=== PATIENT | male | born 1985 | race Caucasian/White ===

== ENCOUNTER 2025-06-21 12:26 | Emergency (ER) | payer BC, SELFPAY ==
--- NOTE | 2025-06-21 12:31 | EKG_ITS ---
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
[2025-06-21 12:45] VITALS: BP 157/109; PULSE 59; RESP 24; TEMP 36.9; O2SAT 100; BMI 30.4
[2025-06-21 13:36] LABS: Lactate (Lactic Acid) 1.9 mMol/L (0.4-2.0)
[2025-06-21 13:38] LABS: Basophils # (Auto) 0.1 Thou/mm3 (0.0-0.2); Basophils % (Auto) 1 % (0-2.5); Eosinophils # (Auto) 0.5 Thou/mm3 (0.0-0.5); Eosinophils % (Auto) 4 % (0-10); Hematocrit 45.4 % (41.0-53.0); Hemoglobin 16.0 g/dL (13.5-16.0); Immature Granulocytes Auto 0.09 Thou/mm3 (0.00-0.00); Lymphocytes # (Auto) 3.9 Thou/mm3 (1.0-4.8); Lymphocytes % (Auto) 30 % (10-50); Mean Corpuscular HGB Conc 35.2 g/dl (31.0-37.0); Mean Corpuscular Hemoglobin 31.1 pg (25.0-35.0); Mean Corpuscular Volume 88 fL (80-100); Monocytes # (Auto) 1.4 Thou/mm3 (0.0-0.8); Monocytes % (Auto) 10 % (0-12); Neutrophils # (Auto) 7.2 Thou/mm3 (1.8-7.7); Neutrophils % (Auto) 55 % (37-80); Nucleated Red Blood Cell # 0.00 Thou/mm3 (0.00-0.00); Nucleated Red Blood Cell % 0 /100 WBC (0); Platelet Count 293 Thou/mm3 (140-440); RDW Standard Deviation 42.1 fL (35.1-43.9); Red Blood Count 5.15 Miln/mm3 (4.50-5.90); White Blood Count 13.2 Thou/mm3 (3.8-10.6)
[2025-06-21 13:52] VITALS: BP 142/107; PULSE 78; RESP 18; TEMP 36.9; O2SAT 98
[2025-06-21 13:58] LABS: Alanine Aminotransferase 34 U/L (10-49); Albumin, Serum 5.2 gm/dL (3.5-5.0); Albumin/Globulin Ratio 2.3 (1.2-2.2); Alkaline Phosphatase 88 U/L (46-116); Anion Gap 10 (7-16); Aspartate Amino Transferase 25 U/L (0-34); BUN/Creatinine Ratio 8 Ratio (12-20); Bilirubin,Total 0.8 mg/dL (0.3-1.2); Blood Urea Nitrogen 9 mg/dL (9-23); Calcium 10.0 mg/dL (8.3-10.6); Calcium (Corrected) 10.0 mg/dL (8.5-10.1); Carbon Dioxide 24.5 mMol/L (20.0-31.0); Chloride 106 mMol/L (98-107); Creatinine (Component) 1.1 mg/dL (0.6-1.3); Estimated Creatinine Clearance 96.7 mL/min (>60); Globulin 2.3 gm/dL (2.3-3.5); Glucose 109 mg/dL (74-106); Lipase 41 U/L (12-53); Osmolality,Calculated 279 (275-295); Potassium 4.8 mMol/L (3.4-5.1); Sodium 140 mMol/L (136-145); Total Protein 7.5 gm/dL (5.7-8.2); Troponin I < 0.020 ng/mL (0.0-0.045); eGFR > 60 See Note
[2025-06-21 14:00] LABS: Collection Type, Urine Clean Catch
[2025-06-21 14:05] LABS: Bilirubin,Urine Negative (Negative); Blood,Urine Negative (Negative); Clarity,Urine Clear (Clear/Hazy); Color,Urine Lt-Yellow (Lt Yel-Yel); Glucose, Urine Negative (Negative); Ketones,Urine Negative (Negative); Leukocyte Esterase,Urine Negative (Negative); Nitrite,Urine Negative (Negative); PH,Urine 6.5 (5.0-7.0); Protein,Urine Negative (Neg - Trace); RBC,Urine 1 /hpf (0-3); Specific Gravity,Urine 1.009 (1.001-1.035); Squamous Epithelial Cell,Urine < 1 /hpf (0-5); Urobilinogen,Urine Negative mg/dL (0.0-1.0); WBC,Urine < 1 /hpf (0-5)
[2025-06-21 14:14] LABS: Amphetamine/Methamp Scrn,U Negative (Negative); Barbiturate Screen,Urine Negative (Negative); Benzodiazepines Screen,Urine Negative (Negative); Benzoylecgonine Screen, Ur Negative (Negative); Fentanyl Screen,Urine Negative (Negative); Opiate Screen,Urine Negative (Negative); THC Screen,Urine Positive (Negative)
[2025-06-21 14:43] VITALS: BP 145/113; PULSE 61
[2025-06-21] MEDS: MECLIZINE HCL 25 MG TABLET PO (14:43)
[2025-06-21 15:00] VITALS: BP 135/106; PULSE 64; RESP 21; O2SAT 100
--- NOTE | 2025-06-21 17:54 | PD.EDSYNC ---
ED Syncope RME/HPI General Chief Complaint: Syncope / Near Syncope Stated Complaint: NEAR SYNCOPE Time Seen by Provider: 06/21/25 12:58 Source: patient and EMS Arrival date/time: 06/21/25 12:26 Mode of arrival: EMS Limitations: no limitations RME / HPI RME / HPI narrative: This patient is a 40-year-old male who arrives to the ED today via EMS due to a near syncopal event that occurred approximate 1/2-hour prior to arrival. 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 Patient states he felt lightheaded prior to the syncopal event. Patient denies any fever nausea or vomiting. Patient states he was hypertensive and clammy after the near syncopal event. At arrival, patient was hypertensive and mildly bradycardic with mild tachypnea. Patient was satting at 100% on 2 L via nasal cannula. Related Data Previous Rx's ?Medication ?Instructions ?Recorded ibuprofen 800 mg tablet 800 mg PO TID PRN pain #30 tabs 07/19/20 Allergies Allergy/AdvReac Type Severity Reaction Status Date / Time Penicillins Allergy Rash Verified 06/21/25 13:01 Review of Systems Review of Systems Systems Reviewed: All systems reviewed, normal except as documented Past Medical History Past Medical History CARDIAC: Positive Cardiac Disorders (PALPITATION TAKES PROPANOLOL) and Hypertension; Negative Congestive Heart Failure RESPIRATORY: Negative Chronic Obstructive Pulmonary Disease (COPD) or Asthma GENITOURINARY: Negative Renal Disease ENDOCRINE: Negative Diabetes Mellitus Type 1 or Diabetes Mellitus Type 2 HEMATOLOGIC: Negative Sickle Cell Disease PSYCHO/SOCIAL: Positive Bipolar Disorder and Depression Surgical History SURGICAL: Positive Tonsillectomy, Joint Replacement (R ELBOW SURGERY), of Back Surgery and Vasectomy Social History SMOKING STATUS: Light (< 1 pack/day) SUBSTANCE USE: does not use ED Exam General Limitations: Present no limitations General appearance: Present alert and other (patient did not look toxic but rather, mild anxiety due to concerns about the near syncopal event.) Head Head exam: Present atraumatic Eye Eye exam: Present normal appearance, PERRL and EOMI ENT ENT exam: Present normal exam, normal oropharynx and mucous membranes moist Neck Neck exam: Present normal inspection, full ROM and trachea midline Chest Chest inspection: Present normal inspection and symmetric chest wall rise Respiratory Respiratory exam: Present normal lung sounds bilaterally Cardiovascular Cardiovascular exam: Present normal rhythm, bradycardia and normal heart sounds Abdominal Exam Abdominal exam: Present soft and normal bowel sounds Extremities Exam Extremities exam: Present normal inspection and full ROM Back Exam Back exam: Present normal inspection and full ROM Neurological Exam Neurological exam: Present alert, oriented X3 and CN II-XII intact Psychiatric Psychiatric exam: Present normal affect and normal mood Skin Skin exam: Present warm, dry, intact and normal color Course Quality Measures none Orders Category Date Time Status EKG (ED ONLY) *Do not use* NOW Care 06/21/25 12:31 Completed EKG (ED Only) Stat Exams 06/21/25 12:31 Draft CBC Stat Lab 06/21/25 13:31 Completed CMP [Comprehensive Metabolic Panel] Stat Lab 06/21/25 13:31 Completed Drug Screen,Urine Stat Lab 06/21/25 13:45 Completed Lactic Acid [Lactate (Lactic Acid)] Stat Lab 06/21/25 13:31 Completed Lipase Stat Lab 06/21/25 13:31 Completed Troponin I Stat Lab 06/21/25 13:31 Completed UA [Urinalysis] Stat Lab 06/21/25 13:45 Completed Meclizine HCl [Antivert] Med 06/21/25 14:31 Discontinued 25 mg PO X1 ONE cloNIDine HCL [Catapres] Med 06/21/25 14:31 Discontinued 0.1 mg PO X1 ONE Vital Signs Vital signs: Vital Signs Temperature 98.4 F 06/21/25 12:45 Pulse Rate 59 L 06/21/25 12:45 Respiratory Rate 24 H 06/21/25 12:45 Blood Pressure 157/109 H 06/21/25 12:45 Pulse Oximetry (%) 100 06/21/25 12:45 Oxygen Delivery Method Nasal Cannula 06/21/25 12:45 Oxygen Flow Rate 2 06/21/25 12:45 As noted above. Blood pressure noted at 157/109. Syncope MDM Narrative MDM Narrative:: All studies performed the ED were evaluated by me personally. Mild elevation in WBCs on serum studies, but no other significant findings. Urinalysis is unremarkable for any urinary tract concerns. EKG revealed a sinus bradycardia with a probable early repolarization with a mild ST elevation. MA interval 157 and QT interval of 415. Patient's blood pressure remained slightly elevated throughout his time in the ED. Patient was given 25 mg of meclizine and 0.1 of clonidine to address his diastolic blood pressure concerns. Minimal movement was achieved. Patient states his dizziness has been resolved and feels asymptomatic at this point in time. Advised patient follow-up with primary care provider for continued evaluation as needed. Advise good hydration and healthy nutrition throughout. Patient data External records reviewed:: [facility] previous records Clinical information provided by:: patient and EMS Social determinants that could affect healthcare access:: none Patient has the following chronic illnesses:: Hypertension How is presenting disease/condition affected by chronic disease/condition?: uneffected by Evaluation data The following diagnostics were reviewed and interpreted by me:: lab results, radiology exam(s) and EKG tracing(s) Lab and/or radiology exams considered but not ordered:: None Interpretation Summary: Mild WBC elevation on serum studies. Urinalysis unremarkable. EKG was unremarkable for any acute ST concerns. Medications / Prescriptions Medications or Prescriptions considered but not ordered:: None Medication administrations:: Medication Administration History Discontinued Medications Clonidine (Clonidine Hcl 0.1 Mg Tablet) 0.1 mg PO X1 ONE Stop: 06/21/25 14:32 Last Admin: 06/21/25 14:43 Dose: 0.1 mg Documented By: AMANDA Meclizine HCl (Meclizine Hcl 25 Mg Tablet) 25 mg PO X1 ONE Stop: 06/21/25 14:32 Last Admin: 06/21/25 14:43 Dose: 25 mg Documented By: AMANDA See above Consultations Consultation(s) initiated? (list below): No Diagnosis Syncope Differential Diagnosis: syncope due to orthostatic hypotension, vasovagal syncope and dehydration Most likely diagnosis given after review of the tests above:: Vasovagal syncope Admission Indicated Admission indicated?: not indicated Explain why admission is indicated or not indicated:: Patient responded well to treatment and was asymptomatic at time of discharge. Based on patient stabilization and asymptomatic state at time of discharge. Patient has been advised to follow-up with primary care provider for discussions related to possibly improving blood pressure management. Admission Request Was there a request for admission?: No Disposition Plan Disposition Plan: Discharge Discharge Attestation Discharge Attestation: The patient and all family members were given an opportunity to ask questions and understood the discharge instructions. Discharge instructions specifically effects, indications for sooner follow up or return to the emergency department, and the expected course of current diagnosis. Patient condition: Stable Discharge Plan Plan Patient Disposition: HOME (Self Care) Prescriptions/Referrals Prescriptions/Med Rec: No Action ibuprofen 800 mg tablet 800 mg PO TID PRN (Reason: pain) Qty: 30 0RF Referrals: Shantelle Chand FNP [Primary Care Provider] - In 1 week Problem List Clinical Impression: Vasovagal syncope Patient/Caregiver Discharge Instructions Education Materials: ED Fainting, Vagal Reaction Additional Instructions: Advised patient follow-up with primary care provider for discussions related to today's visit as well as complications related to possible improve management of blood pressure concerns. Patient to practice good hydration and healthy nutrition for the next few weeks. Print Language: Barbadian Stand Alone Forms: Delmy Award Info., Patient Portal Info Letter
[2025-06-21 18:15] VITALS: BP 157/84; PULSE 65; RESP 18; TEMP 36.8; O2SAT 100
== END 2025-06-21 18:19 | disposition home or self-care (01) ==
PROVIDERS: Emergency Provider Physician Assistant; PCP Nurse Practitioner Family
DX: R55 Syncope and collapse (principal); R00.1 Bradycardia, unspecified; I10 Essential (primary) hypertension
CPT/HCPCS: 36415; 80053; 80307; 81001; 83605; 83690; 84484; 85025; 93005; 99283; A9270

== ENCOUNTER 2025-07-06 14:48 | Emergency (ER) | payer BC, SELFPAY ==
--- NOTE | 2025-07-06 14:53 | EKG_ITS ---
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
[2025-07-06 14:55] VITALS: BP 169/122; PULSE 111; RESP 22; TEMP 37.2; O2SAT 95
[2025-07-06 15:02] VITALS: BP 169/122; PULSE 109; RESP 25; TEMP 36.8; O2SAT 95
--- NOTE | 2025-07-06 15:13 | PD.EDARRY ---
ED Arrhythmia Palp. RME/HPI General Chief Complaint: Arrhythmia/Palpitations Stated Complaint: HEART PROBLEMS Time Seen by Provider: 07/06/25 15:01 Source: patient Arrival date/time: 07/06/25 14:48 Mode of arrival: EMS Limitations: no limitations RME / HPI complaint: rapid heart beat Onset (ago): hour(s) Duration: constant Severity: similar to previous episodes Context: occurred during rest Associated symptoms: denies other symptoms RME / HPI narrative: Patient was here in the emergency department recently which time his heart rate was 55 and his EKG was unchanged from previously with repolarization. Today the patient had a fast heart rate begin. He noted that the heart rate was in the 130s. He did not feel faint or weak. Patient does not have any shortness of breath or chest pain. Patient has decreased the amount of coffee and energy drinks that he takes. He does not have a history of thyroid disease. He does state that he has a small potentially adrenal mass that has not been evaluated further. Related Data Previous Rx's ?Medication ?Instructions ?Recorded ibuprofen 800 mg tablet 800 mg PO TID PRN pain #30 tabs 07/19/20 Allergies Allergy/AdvReac Type Severity Reaction Status Date / Time Penicillins Allergy Severe Rash Verified 07/06/25 14:54 Review of Systems Review of Systems Systems Reviewed: All systems reviewed, normal except as documented Past Medical History Past Medical History CARDIAC: Positive Cardiac Disorders (PALPITATION TAKES PROPANOLOL) and Hypertension; Negative Congestive Heart Failure RESPIRATORY: Negative Chronic Obstructive Pulmonary Disease (COPD) or Asthma GENITOURINARY: Negative Renal Disease ENDOCRINE: Negative Diabetes Mellitus Type 1 or Diabetes Mellitus Type 2 HEMATOLOGIC: Negative Sickle Cell Disease PSYCHO/SOCIAL: Positive Bipolar Disorder and Depression Surgical History SURGICAL: Positive Tonsillectomy, Joint Replacement (R ELBOW SURGERY), of Back Surgery and Vasectomy Social History SMOKING STATUS: Light (< 1 pack/day) SUBSTANCE USE: does not use ED Exam General Limitations: Present no limitations General appearance: Present alert and in no apparent distress Head Head exam: Present atraumatic Eye Eye exam: Present normal appearance, PERRL and EOMI ENT ENT exam: Present normal exam, normal oropharynx and mucous membranes moist Neck Neck exam: Present normal inspection, full ROM and trachea midline Chest Chest inspection: Present normal inspection and symmetric chest wall rise Respiratory Respiratory exam: Present normal lung sounds bilaterally Cardiovascular Cardiovascular exam: Present regular rate, normal rhythm and normal heart sounds Abdominal Exam Abdominal exam: Present soft and normal bowel sounds Extremities Exam Extremities exam: Present normal inspection and full ROM Back Exam Back exam: Present normal inspection and full ROM Neurological Exam Neurological exam: Present alert, oriented X3 and CN II-XII intact Psychiatric Psychiatric exam: Present normal affect and normal mood Skin Skin exam: Present warm, dry, intact and normal color Course Quality Measures none Orders Category Date Time Status EKG (ED ONLY) *Do not use* NOW Care 07/06/25 14:53 Completed EKG (ED Only) Stat Exams 07/06/25 14:53 Draft Vital Signs Vital signs: Vital Signs Temperature 98.9 F 07/06/25 14:55 Pulse Rate 111 H 07/06/25 14:55 Respiratory Rate 22 H 07/06/25 14:55 Blood Pressure 169/122 H 07/06/25 14:55 Pulse Oximetry (%) 95 07/06/25 14:55 Arrhythmia/Palpitations Patient data External records reviewed:: [facility] previous records Clinical information provided by:: patient Social determinants that could affect healthcare access:: none Patient has the following chronic illnesses:: None How is presenting disease/condition affected by chronic disease/condition?: no chronic disease Evaluation data The following diagnostics were reviewed and interpreted by me:: lab results, radiology exam(s) and EKG tracing(s) Lab and/or radiology exams considered but not ordered:: d dimer Interpretation Summary: none Medications / Prescriptions Medications or Prescriptions considered but not ordered:: Beta-blockers Medication administrations:: none Consultations Consultation(s) initiated? (list below): No Diagnosis Differential diagnosis arrhythmia/palpitations: sinus tachycardia Most likely diagnosis given after review of the tests above:: sinus tachycadia Admission Indicated Admission indicated?: not indicated Admission Request Was there a request for admission?: No Disposition Plan Disposition Plan: Discharge Discharge Attestation Discharge Attestation: The patient and all family members were given an opportunity to ask questions and understood the discharge instructions. Discharge instructions specifically effects, indications for sooner follow up or return to the emergency department, and the expected course of current diagnosis. 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 Off work until July 14. Rest. No heavy exertion. Continue to avoid caffeinated products. Print Language: French Stand Alone Forms: Delmy Award Info., Work/School Release, Patient Portal Info Letter
--- NOTE | 2025-07-06 15:15 | XR_ITS ---
EXAMINATION: AP chest single view TECHNIQUE: AP portable upright chest single view Date and time: July 06, 2025, 1541 hours, comparison 04/07/2024 INDICATIONS: Chest pain weakness shortness of breath today. FINDINGS: Normal heart size Lungs are clear Moderate osteopenia IMPRESSION: No active disease
[2025-07-06 15:50] LABS: Basophils # (Auto) 0.1 Thou/mm3 (0.0-0.2); Basophils % (Auto) 1 % (0-2.5); Eosinophils # (Auto) 0.2 Thou/mm3 (0.0-0.5); Eosinophils % (Auto) 2 % (0-10); Hematocrit 47.5 % (41.0-53.0); Hemoglobin 17.0 g/dL (13.5-16.0); Immature Granulocytes Auto 0.11 Thou/mm3 (0.00-0.00); Lymphocytes # (Auto) 4.1 Thou/mm3 (1.0-4.8); Lymphocytes % (Auto) 33 % (10-50); Mean Corpuscular HGB Conc 35.8 g/dl (31.0-37.0); Mean Corpuscular Hemoglobin 31.0 pg (25.0-35.0); Mean Corpuscular Volume 87 fL (80-100); Monocytes # (Auto) 1.4 Thou/mm3 (0.0-0.8); Monocytes % (Auto) 11 % (0-12); Neutrophils # (Auto) 6.6 Thou/mm3 (1.8-7.7); Neutrophils % (Auto) 53 % (37-80); Nucleated Red Blood Cell # 0.00 Thou/mm3 (0.00-0.00); Nucleated Red Blood Cell % 0 /100 WBC (0); Platelet Count 344 Thou/mm3 (140-440); RDW Standard Deviation 39.3 fL (35.1-43.9); Red Blood Count 5.48 Miln/mm3 (4.50-5.90); White Blood Count 12.4 Thou/mm3 (3.8-10.6)
[2025-07-06 16:00] VITALS: BP 151/102; PULSE 97; RESP 15; TEMP 36.4; O2SAT 95
[2025-07-06] MEDS: SODIUM CHLORIDE 0.9% 1000 ML 1,000 ML 999 ML IV (16:01)
[2025-07-06 16:08] LABS: INR 1.0 (0.9-1.3); Partial Thromboplastin Time 27.6 Seconds (22.0-36.0); Prothrombin Time 10.3 Seconds (9.0-12.2)
[2025-07-06 16:15] LABS: Alanine Aminotransferase 47 U/L (10-49); Albumin, Serum 5.6 gm/dL (3.5-5.0); Albumin/Globulin Ratio 2.2 (1.2-2.2); Alkaline Phosphatase 96 U/L (46-116); Anion Gap 12 (7-16); Aspartate Amino Transferase 31 U/L (0-34); BUN/Creatinine Ratio 10 Ratio (12-20); Bilirubin,Total 0.7 mg/dL (0.3-1.2); Blood Urea Nitrogen 12 mg/dL (9-23); Calcium 10.4 mg/dL (8.3-10.6); Calcium (Corrected) 10.4 mg/dL (8.5-10.1); Carbon Dioxide 23.5 mMol/L (20.0-31.0); Chloride 106 mMol/L (98-107); Creatinine (Component) 1.2 mg/dL (0.6-1.3); Globulin 2.5 gm/dL (2.3-3.5); Glucose 106 mg/dL (74-106); Osmolality,Calculated 280 (275-295); Potassium 3.9 mMol/L (3.4-5.1); Sodium 141 mMol/L (136-145); Thyroid Stimulating Hormone 0.75 uIU/mL (0.55-4.78); Total Protein 8.1 gm/dL (5.7-8.2); Troponin I < 0.020 ng/mL (0.0-0.045); eGFR > 60 See Note
[2025-07-06 16:23] LABS: Collection Type, Urine Clean Catch
[2025-07-06 16:32] LABS: Bilirubin,Urine Negative (Negative); Blood,Urine Negative (Negative); Clarity,Urine Clear (Clear/Hazy); Color,Urine Lt-Yellow (Lt Yel-Yel); Glucose, Urine Negative (Negative); Ketones,Urine Negative (Negative); Leukocyte Esterase,Urine Negative (Negative); Nitrite,Urine Negative (Negative); PH,Urine 6.0 (5.0-7.0); Protein,Urine Negative (Neg - Trace); RBC,Urine < 1 /hpf (0-3); Specific Gravity,Urine 1.011 (1.001-1.035); Squamous Epithelial Cell,Urine < 1 /hpf (0-5); Urobilinogen,Urine Negative mg/dL (0.0-1.0); WBC,Urine < 1 /hpf (0-5)
[2025-07-06 16:35] VITALS: PULSE 88; RESP 22; RESP 96
[2025-07-06 16:40] LABS: Amphetamine/Methamp Scrn,U Negative (Negative); Barbiturate Screen,Urine Negative (Negative); Benzodiazepines Screen,Urine Negative (Negative); Benzoylecgonine Screen, Ur Negative (Negative); Fentanyl Screen,Urine Negative (Negative); Opiate Screen,Urine Negative (Negative); THC Screen,Urine Positive (Negative)
[2025-07-06] MEDS: LORazepam 2 MG/ML VIAL 1 MG IVP (16:50)
[2025-07-06 17:42] VITALS: BMI 25.7
[2025-07-06 17:44] LABS: Troponin I < 0.020 ng/mL (0.0-0.045)
[2025-07-06 17:46] VITALS: PULSE 111
[2025-07-06 17:47] VITALS: PULSE 111
== END 2025-07-06 18:08 | disposition home or self-care (01) ==
PROVIDERS: Emergency Provider Family Medicine; PCP Nurse Practitioner Family
DX: R00.0 Tachycardia, unspecified (principal); R00.2 Palpitations
CPT/HCPCS: 36415; 71045; 80053; 80307; 81001; 84443; 84484; 85025; 85610; 85730; 93005; 96361; 96374; 99285; J2060; J7030